=== PATIENT | male | born 1950 | race Caucasian/White ===

== ENCOUNTER 2022-02-08 06:21 | Day surgery (SDC) | payer MEDICARE, SELFPAY ==
[2022-02-04 12:54] VITALS: BMI 28.8
--- NOTE | 2022-02-07 11:47 | HO.ANESPROP2 ---
Documented by User: Nellie Gil NP 02/07/22 11:47 HPI - Anesthesia Eval Consult details Narrative: 71yo M for Colonoscopy COUNT INCLUDES THE [facility] Past Medical History Medical History (Updated 02/04/22 @ 12:53 by Mady Jean-Baptiste RN) Basal cell carcinoma Elevated cholesterol Gout Surgical History Surgical History (Updated 02/04/22 @ 12:53 by Mady Jean-Baptiste RN) H/O colonoscopy Hx of hernia repair Hx of knee surgery Social History Social History (Updated 02/04/22 @ 12:54 by Mady Jean-Baptiste RN) Household Members: Spouse Patient Tobacco Use Status: Never used Tobacco Use of substances other than those prescribed or required for medical reasons: No Advance Directives: No Advance Directives Information Provided: Yes Recently lost weight without trying: No Nutrition Risks: No Nutritional Risk Meds Allergies Allergy/AdvReac Type Severity Reaction Status Date / Time No Known Allergies Allergy Verified 02/04/22 12:53 Home Medications Medication Instructions Recorded Confirmed Last Taken Type Vitamin D3 1 cap PO DAILY 02/04/22 02/04/22 Unknown History atorvastatin 40 mg tablet 40 mg PO BEDTIME 02/04/22 02/04/22 Unknown History diclofenac sodium 50 mg 50 mg PO Q12H PRN Pain 02/04/22 02/04/22 Unknown History tablet,delayed release Exam Exam Date and Time: February 07, 2022 1147 Height,Weight and Vital Signs: Height 5 ft 9 in Weight 88.451 kg Assessment and Plan Assessment Anesthesia Assessment: Chart Reviewed Documented by User: Asael Doty MD 02/17/22 21:17 HPI - Anesthesia Eval Consult details Narrative: 71yo M for Colonoscopy WILLI neck pain with right UE numbness COUNT INCLUDES THE [facility] Past Medical History Medical History (Updated 02/04/22 @ 12:53 by Mady Jean-Baptiste RN) Basal cell carcinoma Elevated cholesterol Gout Functional capacity: independent ambulation Family History Family history of problems with anesthesia: No Surgical History Surgical History (Updated 02/04/22 @ 12:53 by Mady Jean-Baptiste RN) H/O colonoscopy Hx of hernia repair Hx of knee surgery History of Problems with Anesthesia: No Social History Social History (Updated 02/04/22 @ 12:54 by Mady Jean-Baptiste RN) Household Members: Spouse Patient Tobacco Use Status: Never used Tobacco Use of substances other than those prescribed or required for medical reasons: No Advance Directives: No Advance Directives Information Provided: Yes Recently lost weight without trying: No Nutrition Risks: No Nutritional Risk Meds Allergies Allergy/AdvReac Type Severity Reaction Status Date / Time No Known Allergies Allergy Verified 02/04/22 12:53 Home Medications Medication Instructions Recorded Confirmed Last Taken Type Vitamin D3 1 cap PO DAILY 02/04/22 02/04/22 Unknown History atorvastatin 40 mg tablet 40 mg PO BEDTIME 02/04/22 02/04/22 Unknown History diclofenac sodium 50 mg 50 mg PO Q12H PRN Pain 02/04/22 02/04/22 Unknown History tablet,delayed release Exam Airway Mallampati Class: III TM Dist: >3cm Neck ROM: Full Loose/Missing/Broken Teeth: Yes (Fillings ) Heart: S1,S2 Lungs: b/l breath sounds Assessment and Plan Assessment Anesthesia Assessment: Anesthesia Plan Discussed Final Anesthetic Review Family History of Problems with Anesthesia: No History of Problems with Anesthesia: No ASA Class: II Final Preanesthetic Review: Meds/Allgs Chart Reviewed, Consent Obtained/Reviewed and Anes Risks/Benef Reviewed Patient Risk: Intermediate Procedure Risk: Intermediate Anesthetic Plan Anesthetic Plan: MAC: Disposition: Standard PACU
[2022-02-08 06:49] VITALS: BP 138/96; PULSE 74; RESP 16; TEMP 36.4; O2SAT 97; BMI 26.4
[2022-02-08] MEDS: Lactated Ringers 1,000 ML 100 ML IVCONT (06:53)
--- NOTE | 2022-02-08 08:20 | MHC.SHP ---
Pre-Procedural Eval Section A Date of Service: 02/08/22 Section B Chief Complaint: screening Details of Present Illness: see H&P no changes Relevant Family History (Specify if Yes): No Relevant Social History: None Present Medications: see Short Stay Collaborative assessment Medical History: No relevant PMH Allergies: Allergies Allergy/AdvReac Type Severity Reaction Status Date / Time No Known Allergies Allergy Verified 02/04/22 12:53 Review of Systems Sugical H&P ROS: Negative: Constitution, Cardiovascular, Respiratory, Neurological, Psychiatric, Hem-Onc, Allergic/Immunologic, Gastrointestinal, Genitourinary, Musculoskeletal, Integumentary, Endocrine and Eyes/Ears/Nose/Throat Exam Surgical H&P Exam: Normal: HEENT, Normal: Heart, Normal: Lungs, Normal: Extremities, Normal: Abdomen, Normal: Skin and Normal: Neurological Plan Diagnosis/Plan: Unchanged I have reviewed the history and physical and performed a pertinent physical examination on my patient. No changes have occurred unless specified.
[2022-02-08 08:49] VITALS: BP 100/60; PULSE 69; RESP 15; TEMP 36.2; O2SAT 97
--- NOTE | 2022-02-08 08:52 | PM.OP ---
Brief Operative Note Date of Service: 02/08/22 Pre-op diagnosis: screening Surgeon: Nas Lombardo Anesthesia: MAC Was an Student Success Advisor used for this Procedure?: No Estimated blood loss (mL): 0 Pathology: none sent Condition: stable Disposition: PACU
[2022-02-08 09:04] VITALS: BP 116/82; PULSE 67; RESP 16; TEMP 36.3; O2SAT 96
--- NOTE | 2022-02-08 20:14 | OP_ITS ---
SURGEON: Nas Lombardo MD INDICATIONS: Colon cancer screening and prior history of adenomatous colon polyps. PREOPERATIVE DIAGNOSIS: POSTOPERATIVE DIAGNOSIS: PROCEDURE PERFORMED: ESTIMATED BLOOD LOSS: COMPLICATIONS: ANESTHESIA: ASSISTANTS: SPECIMENS: PROCEDURE: Colonoscopy to the terminal ileum. MEDICATIONS: Monitored anesthesia care. DESCRIPTION OF PROCEDURE: Date of service is 02/08/22. History and Physical performed. The risks and benefits of the procedure were explained to the patient. Informed consent was obtained. The patient was placed in left lateral decubitus position. A digital rectal exam was performed and was found to be normal. The Olympus pediatric video colonoscope was introduced into the rectum and advanced to the cecum without difficulty. The cecum was identified by transillumination, palpation, and identification of ileocecal valve. Examination was performed. The scope was removed. He tolerated the procedure well and was taken to recovery in stable condition. FINDINGS: The terminal ileum was examined and appeared normal. The visualized colonic mucosa was within normal limits without evidence of masses or ulcers. No polyps were identified. The quality of the prep was good. There was mild sigmoid diverticulosis with scattered diverticula throughout the remainder of the colon. Retroflexed examination did show some small internal hemorrhoids. IMPRESSION: Normal colonoscopy. RECOMMENDATIONS: 1. Follow up as needed. 2. Repeat colonoscopy is recommended in 10 years for average risk individuals. This is optional based on the patient's age. MD LESTER Ocampo/LUISA / [id number] MTDD
== END 2022-02-08 10:03 | disposition home or self-care (01) ==
PROVIDERS: PCP Internal Medicine; Visit Provider Internal Medicine Gastroenterology
PROC: 0DJD8ZZ Inspection of Lower Intestinal Tract, Via Natural or Artificial Opening Endoscopic (ICD-10-PCS; CPT 45378; principal; 2022-02-08 08:10)
DX: Z12.11 Encounter for screening for malignant neoplasm of colon (principal); Z86.010 Personal history of colon polyps; K57.30 Diverticulosis of large intestine without perforation or abscess without bleeding; K64.8 Other hemorrhoids; M10.9 Gout, unspecified; E78.00 Pure hypercholesterolemia, unspecified; G47.33 Obstructive sleep apnea (adult) (pediatric); Z79.1 Long term (current) use of non-steroidal anti-inflammatories (NSAID); Z79.899 Other long term (current) drug therapy; Z99.89 Dependence on other enabling machines and devices; Z85.828 Personal history of other malignant neoplasm of skin
CPT/HCPCS: G0105

== ENCOUNTER 2024-04-02 09:26 | Outpatient (REF) | payer MEDICARE, SELFPAY ==
--- NOTE | 2024-04-02 10:16 | MHC.AU.HA3 ---
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 He was under the impression he would have that here, seems there was miscommunication during scheduling as he states he was clear that was his objective. Apologized, informed him of local ENT offices. Patient was understanding. Briefly discussed what our hearing aid offerings are but patient wishes to proceed with [employer] as he has already been to multiple offices and is satisfied with their pricing. Signature: Provider: Mayela Colunga, CCC-A
== END 2024-04-02 09:27 | disposition home or self-care (01) ==
LOC: HO.SH 09:26
PROVIDERS: PCP Internal Medicine; Visit Provider Internal Medicine
DX: Z13.89 Encounter for screening for other disorder (principal)